=== PATIENT | male | born 1950 | race Caucasian/White ===

== ENCOUNTER 2023-02-21 05:30 | Observation (INO) ==
--- NOTE | 2023-02-02 14:01 | PAT Medication Instructions ---
Medication Instructions Date of Service February 02, 2023 Home Medications albuterol sulfate 90 mcg/actuation aerosol inhaler 1 inh inhalation QID PRN sob atorvastatin 80 mg tablet 40 mg PO HS mometasone 220 mcg/actuation(120 doses)breath activated powder inhaler (Asmanex Twisthaler) 2 inh inhalation QAM Multivitamin 50 Plus tablet 1 tab PO QAM omeprazole 20 mg capsule,delayed release 20 mg PO QAM DO NOT take the morning of surgery Multivitamin 50 Plus tablet 1 tab PO QAM Take morning of surgery With a small sip of water, OTHERWISE NOTHING TO EAT OR DRINK AFTER MIDNIGHT: albuterol sulfate 90 mcg/actuation aerosol inhaler 1 inh inhalation QID PRN sob (use if needed; please bring rescue inhaler with you to hospital day of surgery if possible) mometasone 220 mcg/actuation(120 doses)breath activated powder inhaler (Asmanex Twisthaler) 2 inh inhalation QAM omeprazole 20 mg capsule,delayed release 20 mg PO QAM Take evening before surgery albuterol sulfate 90 mcg/actuation aerosol inhaler 1 inh inhalation QID PRN sob (if needed) atorvastatin 80 mg tablet 40 mg PO HS Other Notes If you have any questions please call us at [phone] or [phone] or [phone] or [phone]
--- NOTE | 2023-02-09 10:08 | Anesthesiology Consultation ---
Date of Service February 09, 2023 Assessment & Plan (1) Encounter for pre-operative examination: - COVID screening: Per assessment on 02/09: No known COVID-19 positive contacts or current COVID-19 related symptoms. Travel screen negative. Patient vaccinated. At surgeon discretion if preop Covid testing being done. - Outpatient joint assessment: Pt currently scheduled for inpatient pathway. If surgeon requests review for outpatient joint pathway, patient is not recommended candidate for outpatient joint program from anesthesia standpoint. - Abnormal preop CXR: CXR performed 02/09/23 noted "Foci of parenchymal scarring are seen throughout both lungs with interstitial opacities. This may represent changes of chronic lung disease. Correlate clinically for evidence of a mild pneumonitis. Correlate with any prior outside imaging studies to assess for chronicity. This can be further assessed with a chest CT if clinically warranted." Note written to PCP regarding preop CXR- Awaiting response (Dr. Meraz/[facility] [place]). Chart Review Chart Review: Patient seen in Pre Admission Testing Teaching & Discussion Pre-Anesthesia Teaching/Discussion Notes: Instructed NPO after midnight before surgery,except medications with 15 cc of water. Medication instructions provided according to the PAT guidelines. History Surgery Operation Date: 02/21/23 11:15 Proposed Procedures p Left Total Knee Arthroplasty - Bharat Llamas DO Height/Weight Height: 6 ft Weight: 105.6 kg Allergies Allergy/AdvReac Type Severity Reaction Status Date / Time No Known Allergies Allergy Verified 02/01/23 10:48 Medications Home Medications Medication Instructions Recorded Confirmed Last Taken albuterol sulfate 90 mcg/actuation 1 inh inhalation QID PRN sob 02/01/2301/04 Unknown aerosol inhaler atorvastatin 80 mg tablet 40 mg PO HS 02/01/23 02/01/23 Unknown mometasone 220 mcg/actuation(120 2 inh inhalation QAM 02/01/23 02/01/23 Unknown doses)breath activated powder inhaler (Asmanex Twisthaler) [id number] 1 tab PO QAM 02/01/23 02/01/23 Unknown tablet (Multivitamin 50 Plus tablet) omeprazole 20 mg capsule,delayed 20 mg PO QAM 02/01/23 02/01/23 Unknown release Past Medical History Medical History Asthma Well controlled, "mild" BPH (benign prostatic hyperplasia) GERD (gastroesophageal reflux disease) Hx of colonic polyp Hyperlipidemia Osteoarthritis Post traumatic stress disorder [place] Sleep apnea CPAP (occasional use, non-compliant), "mild" Exercise / Class Metabolic Activity II 4-5 Yardwork/Stairs/Walk up hill (one FS (no CP, no SOB)) Past Family History Family History Other No family history of adverse response to anesthesia Past Surgical History Surgical History History of colonoscopy History of esophagogastroduodenoscopy (EGD) History of tonsillectomy S/P left knee arthroscopy S/P lumbar fusion L4/L5 Past Anesthesia History No Hx of Anesthesia Complications and No Family Hx of Anesthesia Complications History of PONV No Hx of PONV and Hx of Motion Sickness (Occasional/car) Social History Smoking Status: Never smoker Do You Dip or Chew Tobacco: No Hx Alcohol Use: Yes (Hx heavy, remote ETOH after tour, now only occasional use) Alcohol type: beer and hard liquor alcohol intake frequency: holidays/special occasions only Hx Substance Use: No substance use type: does not use Review of Systems Patient denies chest pain, shortness of breath, dyspnea on exertion, fever, chills, cough, wheezing, palpitations. Physical Exam Vital Signs VITALS BP 128/77 P 67 TEMP 98.0 SP02 96%RA RESP 16 PHYSICAL Full cervical extension range of motion. Full TMJ range of motion. TMD 3 finger breaths Mallampati Score 2 Dentition: missing right lower side Lungs: clear throughout to auscultation Cardiac: regular rate and rhythm, no murmurs noted Spine: normal Carotid arteries: negative bruit Extremities: LLE swelling (no pitting edema)- chronic issue r/t knee issues per patient Lab Results Anesthesia Preop Results Results Anesthesia Widget: WBC 7.08 K/ul (4.8-10.8) 02/09/23 Hgb 13.5 g/dl (14.0-18.0) L 02/09/23 Hct 41.0 % (42.0-52.0) L 02/09/23 Plt 181 K/uL (130-400) 02/09/23 Na 140 mmol/L (136-145) 02/09/23 K 4.9 mmol/L (3.5-5.1) 02/09/23 Cl 106 mmol/L (98-107) 02/09/23 CO2 28 mmol/L (21-32) 02/09/23 BUN 20 mg/dl (6-23) 02/09/23 Creat 1.16 mg/dl (0.6-1.4) 02/09/23 Glucose Level 88 mg/dl (70-99(Fasting)) 02/09/23 PT 10.6 Seconds (9.0-12.0) 02/09/23 PTT 28.4 Seconds (21.0-31.0) 02/09/23 INR 1.0 (0.9-1.1) 02/09/23 HA1c 5.9 % (4.5-5.6) H 02/09/23 Urine Color Yellow 02/09/23 Urine Appearance Clear (Clear) 02/09/23 Urine pH 6.5 (4.5-7.5) 02/09/23 Urine Specific Hecker 1.008 (1.000-1.030) 02/09/23 Urine Protein Negative (Negative) 02/09/23 Urine Glucose (UA) Negative (Negative) 02/09/23 Urine Ketones Negative (Negative) 02/09/23 Urine Blood Negative (Negative) 02/09/23 Urine Nitrite Negative (Negative) 02/09/23 Urine Bilirubin Negative (Negative) 02/09/23 Urine Urobilinogen Negative (Negative) 02/09/23 Urine Leukocyte Esterase Trace (Negative) H 02/09/23 Urine WBC (Auto) 1-5 /hpf (0-5) 02/09/23 Urine RBC (Auto) 0-4 /hpf (0-4) 02/09/23 Urine Hyaline Casts (Auto) 0 /lpf (0-5) 02/09/23 Urine Epithelial Cells (Auto) 0-5 /lpf (0-5) 02/09/23 Urine Bacteria (Auto) Negative (Negative) 02/09/23 Blood Type A Positive 02/09/23 Antibody Screen NEGATIVE 02/09/23 Testing Electrocardiogram Date: 02/09/23 NSR at 60bpm. Chest X-Ray Date: 02/09/23 Cardiomegaly without radiographic evidence of congestive failure. Foci of parenchymal scarring are seen throughout both lungs with interstitial opacities. This may represent changes of chronic lung disease. Correlate clinically for evidence of a mild pneumonitis. Correlate with any prior outside imaging studies to assess for chronicity. This can be further assessed with a chest CT if clinically warranted. COVID-19 Risk Screen Screening Information COVID-19 Screen Date: 02/09/23 Exposure 21 Days Family/Household +COVID Last 21 Days: No Exposure 10 Days Any COVID Exposure Last 10 Days: No Symptoms Last 10 Days Experienced COVID Sx Last 10 Days: No + COVID 0-90 Days COVID + in Last 0-90 Days: No
--- NOTE | 2023-02-09 12:52 | History & Physical Report ---
Date of Service February 09, 2023 date of surgery: 02/21/23 Procedure: Left Total Knee Arthroplasty Surgeon: Bharat Llamas Assessment & Plan (1) Arthritis of knee, left: Plan: Risk and benefits of procedure were discussed in detail, he would like to proceed with surgical invention. Plan to be left total knee arthroplasty at [facility], plan for overnight stay with discharge home the following day with home health physical therapy. Will place on aspirin 81 mg twice a day for 1 month postop. We will follow-up in the office 2 weeks after surgery sooner if he is having any issues. He otherwise has no other questions or concerns The risks and benefits have been discussed including, but not limited to, risk of infection, nerve injury, stiffness, loss of motion, failure to improve, etc. Reasonable outcomes and options of treatment were discussed. An explanation of appropriate alternatives to the procedure that may be advantageous were discussed and their risks and benefits, as well as the risks and benefits of not proceeding with treatment. I offered to answer any additional inquiries concerning the treatment involved. All the patient's questions were answered. The patient is agreeable, understanding of the treatment plan and alternatives, and wishes to proceed with the treatment plan. History of Present Illness Chief Complaint: left knee pain Primary Care Provider: GALI Francisco is a pleasant 73-year-old male who presents for preop evaluation prior to his left total knee replacement scheduled for February 21. He has a longstanding history of left knee pain, he underwent left knee arthroscopy with partial meniscectomy, since that time he is undergoing cortisone injections as well as viscosupplementation without relief. He rates his current pain as a 7 out of 10, has tried oral anti-inflammatories and Tylenol as well. This point time is failed conservative measures like that she had left total knee replacement Allergies Allergy/AdvReac Type Severity Reaction Status Date / Time No Known Allergies Allergy Verified 02/01/23 10:48 Home Medications Medication Instructions Recorded Confirmed Type albuterol sulfate 90 mcg/actuation 1 inh inhalation QID PRN sob 02/01/23 02/01/23 History aerosol inhaler atorvastatin 80 mg tablet 40 mg PO HS 02/01/23 02/01/23 History mometasone 220 mcg/actuation(120 2 inh inhalation QAM 02/01/23 02/01/23 History doses)breath activated powder inhaler (Asmanex Twisthaler) [id number] 1 tab PO QAM 02/01/23 02/01/23 History tablet (Multivitamin 50 Plus tablet) omeprazole 20 mg capsule,delayed 20 mg PO QAM 02/01/23 02/01/23 History release Past Med/Surg History Medical History Asthma Well controlled, "mild" BPH (benign prostatic hyperplasia) GERD (gastroesophageal reflux disease) Hx of colonic polyp Hyperlipidemia Osteoarthritis Post traumatic stress disorder [place] Sleep apnea CPAP (occasional use, non-compliant), "mild" Surgical History History of colonoscopy History of esophagogastroduodenoscopy (EGD) History of tonsillectomy S/P left knee arthroscopy S/P lumbar fusion L4/L5 Family History Other No family history of adverse response to anesthesia Social History Smoking Status: Never smoker Second Hand Exposure: No; Do You Dip or Chew Tobacco: No; Hx Alcohol Use: Yes (Hx heavy, remote ETOH after tour, now only occasional use) Alcohol type: beer and hard liquor Hx Substance Use: No Preferred Language: Chilean Communication Ability: Effective Gis Database Administrator Required: No Beliefs That Will Affect Care: None Current Living Situation: Spouse and Family Current Living Situation Comment: lives with and handicap daughter Feels Safe at Home: Yes Assistive Devices: CPAP and Glasses Review of Systems Review of Systems: All systems reviewed & are unremarkable except as noted in HPI & below Constitutional: no fever, no chills and no sweats Respiratory: no cough and no dyspnea Cardiovascular: no chest pain, no dyspnea and no orthopnea Gastrointestinal: no abdominal pain, no nausea and no vomiting Musculoskeletal: as per Subjective / HPI Physical Exam Physical Exam: HT: 6ft WT: 105.6kg Constitutional: WD/WN, vitals as above no acute distress Respiratory: normal respiratory effort, lungs clear to auscultation no respiratory distress, no labored breathing and does not use accessory muscles Cardiovascular: RRR, no murmur, no edema Gastrointestinal (Abdomen): normal bowel sounds, soft, nontender, no hepatosplenomegaly Musculoskeletal: Knee: + knee abnormal to inspection (LEFT KNEE: ), + effusion (+1 effusion), + surgical incision (well healed portals), + limited ROM of knee (ROM 0/3/110), + knee ROM with crepitation, + joint line tenderness (medial joint line) and + Sofia's sign positive; no deformity, no skin erythema, no ecchymosis, no valgus laxity, no varus laxity, anterior drawer test negative, Nilsa's sign negative and pivot shift test negative Results & Data Results & Data Diagnostic Findings Left Knee X-ray: left knee series confirm advanced degenerative changes to the left knee, greatest medial compartments and patellofemoral joint, showing joint space narrowing, osteophyte formation and subchondral sclerosis. no acute bony pathology noted.
[2023-02-21] MEDS ORDERED: GABAPENTIN 300 MG CAP PO SCH (06:00)
[2023-02-21] MEDS ORDERED: ceFAZolin 2000MG 2,000 MG/15 ML SYR IV SCH (06:00)
[2023-02-21] MEDS ORDERED: CeleBREX 200 MG CAP PO SCH (06:00)
[2023-02-21] MEDS ORDERED: TRANEXAMIC ACID 1,000 MG **IV Intra-op IV SCH (06:00)
[2023-02-21] MEDS ORDERED: dexAMETHasone 4 MG TAB PO SCH (06:00)
[2023-02-21] MEDS ORDERED: ROPIVACAINE 0.5% HCL/PF 150 MG, BUPIVACAINE 0.75% MPF 20 ML, EPINEPHrine 30MG/30ML (OR ... INSTIL SCH (06:00)
[2023-02-21] MEDS ORDERED: FAMOTIDINE 20 MG TAB PO SCH (06:00)
[2023-02-21] MEDS ORDERED: TRANEXAMIC ACID 1,000 MG **IV Pre-op IV SCH (06:00)
[2023-02-21] MEDS ORDERED: METOCLOPRAMIDE HCL 10 MG TABLET PO SCH (06:00)
[2023-02-21] MEDS ORDERED: LR 500ML BOLUS, THEN 15ML/HR IV SCH (06:00)
[2023-02-21] MEDS ORDERED: ACETAMINOPHEN 500 MG TAB PO SCH (06:00)
[2023-02-21] MEDS ORDERED: BUPIVACAINE 0.5 % 5 MG/1 ML PF 10ML VIAL ONE (06:03)
[2023-02-21] MEDS ORDERED: ROPIVACAINE 0.5% 5 MG/ML 30 ML VIAL ONE (06:04)
[2023-02-21] MEDS ORDERED: fentaNYL citrate PF 100 MCG/2 ML VIAL ONE (07:02)
[2023-02-21] MEDS ORDERED: LIDOCAINE 2% 2 ML VIAL/AMP(20MG/ML) INFIL ONE (07:02)
[2023-02-21] MEDS ORDERED: PROPOFOL IV EMULSION 10 MG/ML 20 ML VIAL IV ONE (07:02)
[2023-02-21] MEDS ORDERED: MIDAZOLAM HCL 1 MG/ML 2ML VIAL ONE (07:02)
[2023-02-21] MEDS ORDERED: ORTHO JOINT ANESTHETIC ONE (07:06)
--- NOTE | 2023-02-21 07:08 | History & Physical Bridge Note ---
Date of Service February 21, 2023 History & Physical Bridge Note I have examined the patient, reviewed the History & Physical and in the interval since the performance of the History & Physical I have noted the following changes of clinical significance: no changes noted
[2023-02-21] MEDS ORDERED: ONDANSETRON INJ 2 MG/ML 2 ML VIAL IV PRN ×2 (08:09→10:39)
[2023-02-21] MEDS ORDERED: ePHEDrine sulfate 50 MG/ML AMP IV PRN (08:09)
[2023-02-21] MEDS ORDERED: fentaNYL citrate PF 100 MCG/2 ML VIAL IV PRN (08:09)
[2023-02-21] MEDS ORDERED: ATROPINE SULFATE 0.1 MG/ML 10ML SYR IV PRN (08:09)
--- NOTE | 2023-02-21 09:05 | Operative Report ---
Post Operative Report Pre & Post Diagnosis Operation Date: 02/21/23 07:35 Pre-Op Diagnosis: Left Knee Osteoarthritis Post-Op Diagnosis: Left Knee Osteoarthritis I identified the patient and participated in the time-out.: Yes Procedure Operation Date: 02/21/23 07:35 Actual Procedures p Left Total Knee Arthroplasty(Left)Utilizing [employer] persona with block total knee arthroplasty size femur 10 standard tibia G poly 11 medial constrained patella 34 oval - Bharat Llamas DO Surgeon Bharat Llamas DO Case Briefer Shalom BIANCHI Estimated Blood Loss 5 Findings Consistent with Post-Op Diagnosis Patient presents with severe end-stage tricompartmental degenerative joint disease subchondral sclerosis marginal osteophytes subchondral cystic changes moderate to large effusion with eburnated [id number]-vq-wawv varus alignment Specimens Bone and cartilage Drains Medium bore Hemovac Anesthesia Type MAC Spinal Regional Complications none Disposition Accompanied Patient To Recovery: No Disposition: Recovery Room Indications Patient presents with severe end-stage DJD nonresponsive to conservative management left knee patient's failed attempted corticosteroid injection viscosupplementation relative rest activity modification patient presents the above intraoperative findings Description of Procedure After proper prepping and draping of the left lower extremity anterior midline incision was made over the region of the extensor extensor mechanism after meticulous hemostasis was obtained and maintained in subcutaneous tissues a medial parapatellar incision was made The patella was subluxed lateralward the medial lateral gutter were cleaned from any hypertrophic synovitis and scar tissue of the distal femoral block was placed and the distal femoral osteotomy cut was made subsequently the chamfers anterior and posterior osteotomy cuts were made utilizing the 4-in-1 block the tibia was subsequently subluxed anteriorward medial and ateral meniscal remnants were excised in their entirety remnants of the anterior and posterior cruciate ligaments were excised in their entirety excellent exposure of the proximal tibia was obtained the tibial osteotomy guide was placed on the proximal tibial osteotomy cut was made once again the knee was irrigated with copious amounts of sterile saline solution the patella was subsequently everted lateralward thickened scar tissue around the patella was removed the patella was subsequently cut utilizing a freehand technique and was drilled prepared for final preparation and placement of patella socially flexion-extension gaps were checked and the equal and symmetric trials were placed to the appropriate femoral and tibial trials with poly-spacer being placed for equal flexion and extension gaps and full range of motion including extension to 0 and flexion to 140 the trial components after having been taken to recovery range of motion was subsequently removed meticulous hemostasis was obtained and maintained subsequently a knee block injection of joint cocktail including ropivacaine 0.5% 150 mg. Bupivacaine 0.5% epinephrine 1-200,030 mL's toradol 30 mg dexamethasone 4 mg ketamine 10 mg clonidine 100 micrograms normal saline solution 30 mg was infiltrated into the soft tissues of the posterior knee medial lateral gutters and periosteal synovium special attention was paid to protect neurovascular structures at all times subsequently trial components having been removed the knee was irrigated with sterile saline solution. debris was removed the proximal tibia was subsequently prepared and was made ready for the placement of the tibial component tibial component was also cemented and tamped into position the femoral component was subsequently placed and cemented in the position the patellar component was subsequently cemented in position because hemostasis once again obtained and maintained wound having been thoroughly irrigated with debridement and debridement lavage was performed as well as a medial parapatellar incision closed with #1 Vicryl in interrupted fashion subcutaneous was closed with #2 Vicryl skin was closed with skin clips. PA-C was necessary for prepping and drapping as well as wound closure of deep fascia Sub cutaneous tissue and skin and was necessary for the case. A sterile compressive dressing was placed patient was taken to recovery in stable condition of report dictated by Farhad I attest to the content of the Intraoperative Record and any orders documented therein. Any exceptions are noted below.Due to the complex nature of the procedure, the entire surgery was performed with the operational assistance of ARIAS Holland. The campaign assistant, under direct supervision, was involved in the actual performance of all aspects of the surgical procedure including hemostasis, tissue retraction and incision, instrument management, patient positioning, and wound closure. I attest to the content of the Intraoperative Record and any orders documented therein. Any exceptions are noted below.
--- NOTE | 2023-02-21 10:10 | XRay Report ---
XR knee LT 1 or 2V routine CLINICAL HISTORY: Postoperative evaluation. COMPARISON: None FINDINGS: Alignment of the total left knee arthroplasty is anatomic. There is no periprosthetic frac ture or unexpected radiopaque foreign body. Surgical drain is in place. IMPRESSION: Expected findings following total left knee arthroplasty. ACT 112: Negative or not required by law. Electronically signed by: Sean June M.D. 02/21/2023 10:09 AM
--- NOTE | 2023-02-21 10:33 | Operative Report ---
Post Operative Report Pre & Post Diagnosis Operation Date: 02/21/23 07:35 Pre-Op Diagnosis: Left Knee Osteoarthritis Post-Op Diagnosis: Left Knee Osteoarthritis I identified the patient and participated in the time-out.: Yes Procedure Operation Date: 02/21/23 07:35 Actual Procedures p Left Total Knee Arthroplasty(Left) - Bharat Llamas DO Surgeon Bharat Llamas DO Parachute Accessories Attacher Shalom BIANCHI Estimated Blood Loss 5 I attest to the content of the Intraoperative Record and any orders documented therein. Any exceptions are noted below.
[2023-02-21] MEDS ORDERED: bisacodyL 10 MG SUPP PR PRN (10:39)
[2023-02-21] MEDS ORDERED: MAGNESIUM HYDROXIDE SUSP 30 ML UDC PO PRN (10:39)
[2023-02-21] MEDS ORDERED: HYDROmorphone INJ 1 MG/ML SYRINGE IV PRN (10:39)
[2023-02-21] MEDS ORDERED: METOCLOPRAMIDE HCL INJ 5 MG/ML 2 ML VIAL IV PRN (10:39)
[2023-02-21] MEDS ORDERED: diphenhydrAMINE Capsule 25 MG CAP PO PRN (10:39)
[2023-02-21] MEDS ORDERED: NALOXONE HCL 0.4 MG/1 ML VIAL/CARP IV PRN (10:39)
[2023-02-21] MEDS ORDERED: ALBUTEROL HFA 8 GM INHALER INH PRN (10:39)
[2023-02-21] MEDS ORDERED: oxyCODONE HCL IR 5 MG TAB (IMMEDIATE RELEASE) PO PRN (10:39)
[2023-02-21] MEDS: SODIUM CHLORIDE 0.9% 1000ML 1,000 ML IV SCH ×2 (10:55→20:45)
[2023-02-21] MEDS: KETOROLAC TROMETHAMINE 15 MG/ML VIAL IV SCH ×4 (10:57→23:00)
--- NOTE | 2023-02-21 11:01 | Anesthesiology Progress Note ---
Date of Service February 21, 2023 Anesthesia Post Procedure Vital Signs Vital Signs: Temp Pulse Pulse Pulse Resp BP Pulse Ox 02/21/23 10:39 97.7 F 76 18 124/76 98 02/21/23 10:20 97.5 F L 62 20 114/90 100 02/21/23 10:10 62 18 124/75 97 02/21/23 10:00 62 17 127/69 95 02/21/23 09:50 62 15 136/77 98 02/21/23 09:43 97.0 F L 72 12 129/76 98 02/21/23 05:52 02/21/23 05:52 97.7 F 64 20 138/82 97 O2 Del Method O2 Flow Rate 02/21/23 10:39 Room Air 02/21/23 10:20 Nasal Cannula 2 02/21/23 10:10 Nasal Cannula 2 02/21/23 10:00 Nasal Cannula 2 02/21/23 09:50 Nasal Cannula 2 02/21/23 09:43 Nasal Cannula 4 02/21/23 05:52 Room Air 02/21/23 05:52 Room Air Pain Intensity Left Knee: Pain Intensity: 0 Transfer of Care Handoff Completed per policy Notes Mental Status: alert / awake / arousable and participated in evaluation Patient Amnestic to Procedure: Yes Nausea / Vomiting: adequately controlled Pain: adequately controlled Airway Patency, RR, SpO2: stable & adequate BP & HR: stable & adequate Hydration State: stable & adequate Neuraxial Anesthesia: was administered and sensory block is resolving Anesthetic Complications: no major complications apparent and Pt Satisfied with anesthetic care
[2023-02-21] MEDS: ACETAMINOPHEN 500 MG TAB PO SCH ×2 (15:09→22:58)
[2023-02-21] MEDS: ceFAZolin 2000MG 2,000 MG/15 ML SYR IV SCH ×2 (16:28→23:01)
[2023-02-21] MEDS: DOCUSATE SODIUM 100 MG CAP PO SCH (20:46)
[2023-02-21] MEDS: ASPIRIN 81 MG ECTAB PO SCH (20:46)
[2023-02-21] MEDS ORDERED: SENNA 8.6 MG TAB PO SCH (21:00)
[2023-02-21] MEDS ORDERED: ATORVASTATIN 40 MG TAB PO SCH (21:00)
[2023-02-22] MEDS: ACETAMINOPHEN 500 MG TAB PO SCH (05:45)
--- NOTE | 2023-02-22 07:11 | Orthopedic Progress Note ---
Date of Service February 22, 2023 Assessment & Plan (1) History of total left knee replacement: Plan: POD #1 s/p Left TKA pt/ot dvt proph with [facility]/SCD/ASA plan for d/c home with HHPT after PT today Admission and Anticipated Discharge Date Admission Date: February 21, 2023 Subjective POD #1 s/p Left TKA Review of Systems Constitutional: no fever, no chills and no sweats Respiratory: no cough and no dyspnea Cardiovascular: no chest pain and no dyspnea Gastrointestinal: no abdominal pain, no nausea and no vomiting Physical Exam Musculoskeletal: Left Leg: NVDI, calf SNT, negative kavya sign. DP palpable, able to wiggle toes/ankle movement without difficulty. dressing clean dry and intact. Results & Data Vital Signs (Past 12 Hours) Vital Signs Temp Pulse Resp BP Pulse Ox O2 Del Method 02/22/23 06:28 36.4 C L 53 L 16 98/60 L 96 Room Air 02/22/23 03:00 36.6 C 54 L 18 99/60 L 97 Room Air 02/21/23 23:00 36.5 C 63 18 105/63 96 Room Air
[2023-02-22 07:58] LABS: Hematocrit (blood only) 34.9 % (42.0-52.0); Hemoglobin 11.8 g/dl (14.0-18.0); Mean Corpuscular Hemoglobin 28.9 pg (25.0-34.0); Mean Corpuscular Hgb Conc 33.8 g/dL (32.0-36.0); Mean Corpuscular Volume 85.3 fL (80.0-100.0); Mean Platelet Volume 10.3 fL (9.4-12.4); Platelet Count 169 K/uL (130-400); RDW Standard Deviation 43.9 fL (36.4-46.3); Red Blood Count 4.09 M/uL (4.70-6.10); White Blood Count 14.38 K/ul (4.8-10.8)
[2023-02-22] MEDS: ASPIRIN 81 MG ECTAB PO SCH (08:03)
[2023-02-22] MEDS: DOCUSATE SODIUM 100 MG CAP PO SCH (08:03)
[2023-02-22 08:14] LABS: BUN Creatinine Ratio 18.3 (10-20); Calcium 8.7 mg/dl (8.6-10.3); Creatinine Clr Calc Pharmacy 64.3 ml/min; Est GFR (African American) 64.7 ml/min; Est GFR (Non-African American) 55.8 ml/min; Potassium 4.4 mmol/L (3.5-5.1)
[2023-02-22] MEDS ORDERED: MULTIVITAMIN TAB PO SCH (09:00)
[2023-02-22] MEDS ORDERED: FLUTICASONE FUROATE 200MCG 14 PUFFS/INHALER INH SCH (09:00)
--- NOTE | 2023-02-22 10:33 | Discharge Summary ---
Date of Service date of discharge: February 22, 2023 date of admission: 02/21/23 Admission HPI Per Admitting Provider Nolan is a pleasant 73-year-old male who presents for preop evaluation prior to his left total knee replacement scheduled for February 21. He has a longstanding history of left knee pain, he underwent left knee arthroscopy with partial meniscectomy, since that time he is undergoing cortisone injections as well as viscosupplementation without relief. He rates his current pain as a 7 out of 10, has tried oral anti-inflammatories and Tylenol as well. This point time is failed conservative measures like that she had left total knee replacement Principal Diagnosis left knee osteoarthritis Discharge Exam HT: 6ft WT: 105.6kg Constitutional WD/WN, vitals as above Musculoskeletal left knee: NVDI, calf SNT, negative kavya sign. DP palpable, able to wiggle toes/ankle movement without difficulty. dressing clean and dry Discharge Data Allergies Allergy/AdvReac Type Severity Reaction Status Date / Time No Known Allergies Allergy Verified 02/21/23 05:49 Procedures Performed Operation Date: 02/21/23 07:35 Actual Procedures p Left Total Knee Arthroplasty(Left) - Bharat Herrera DO Ordered Studies 02/21/23 05:00 US - OR guided needle placemen Routine Hospital Course (1) History of total left knee replacement: POD #1 s/p Left TKA pt/ot dvt proph with ZAINA/SCD/ASA plan for d/c home with HHPT after PT today Total Time Total Time Spent Total Time Spent (In Minutes): 20 Discharge Plan Discharge Items Patient Disposition: Home - Home Health Services Reason For Visit: Left Knee Osteoarthritis Discharge Diagnosis: LEFT TOTAL KNEE ARTHROPLASTY Activity: Per Instructions section Non-emergency contact: Surgeon Call non-emergency contact if: you have any medication questions, your temperature is above 101, your wound has increased redness, your wound has increased drainage and your wound pain has increased Follow-up/Referrals: Naren Meraz MD [Primary Care Provider] - Diet: Regular Addtl Attending Provider Instructions: ACTIVITY RECOMMENDATIONS: SELF CARE INSTRUCTIONS AFTER TOTAL KNEE REPLACEMENT A. You may need to continue a physical therapy program after discharge from the hospital. There are several options available to you. Your doctor will assist you in selecting the best one for you. 1. An out-patient facility 2 to 3 times a week for therapy or home therapy. 2. Continue working on all exercises taught to you in the hospital. Your goals should be to increase bending of your knee to 90 degrees and beyond and to fully straighten your knee. B. You may progress at your own pace from walking with a walker or crutches to a cane; then to no assistive devices. C. Make walking a part of your daily routine. Be up as much as comfortable with rest periods throughout the day. Rest with leg elevation is very important. Use the ice wrap frequently for the first 3-4 weeks. D. There are no restrictions on activities. You may ride in a car, shop, participate in cyber incident analyst and all social activities. E. Wear the long elastic stockings (ZAINA hose) 20 hours a day for 2 weeks after surgery. They can be removed several times a day for laundering and for a bath. F. You may shower, no tub baths until cleared by your doctor. SPECIAL CARE INSTRUCTIONS: VERY IMPORTANT TO READ AND REVIEW A. There are a few signs you need to watch for after you are home. Call [facility] if you notice any of the followin. Increased severe knee pain. Some pain is expected especially when you exercise. 2. Increased swelling in your leg or knee; pain or swelling of the calf muscle in either lower leg. 3. Any fluid drainage from the incision. 4. Shortness of breath or chest pain. B. Please call [facility] at if you have any concerns or questions about your operation or recovery. The doctor or his nurse will return your call promptly. C. You must take antibiotics before dental work, bladder, bowel or other surgery. Your doctor will provide you with a permanent care to carry describing this precaution. IMPORTANT: * REMEMBER TO TAKE ASPIRIN, 81 MG, TWICE DAILY FOR 4 WEEKS UNLESS OTHERWISE DIRECTED. THIS IS YOUR BLOOD THINNER. * HIGH RISK PATIENTS MAY BE PRESCRIBED A STRONGER BLOOD THINNER. THIS WILL BE PROVIDED AT DISCHARGE. * CALL IF INCREASED PAIN, REDNESS, DRAINAGE OR FEVER GREATER THAT 101. * WEAR ZAINA HOSE 20 HOURS PER DAY FOR 2 WEEKS. DRESSING INSTRUCTIONS * KOLBY Dressing- This is a large suction dressing covering your incision. This will help pull any excess drainage from the wound and allow your incision to heal properly. You may shower with this if you can keep the unit outside of the shower. If any bleeding or leakage is noted please call your doctor's office. This will remain on your incision for 7 days and then should be removed. This can be done yourself or by the home nursing staff if applicable. The entire unit is disposable once removed. Once removed, keep incision clean and dry. If redness or drainage is noted, please call your surgeon. ONCE KOLBY IS REMOVED, FOLLOW THESE INSTRUCTIONS: DERMABOND Prineo- This is a mesh tape dressing that is covered with glue. It should remain in place until the incision is properly healed, usually 10-14 days. This dressing is designed to naturally slough off. You may trim the excess mesh tape as it peels off. Incision may be briefly wet in a shower. Dry immediately by blotting with a clean, dry towel. Do not bath or swim until instructed by your doctor. Do not scratch, rub, or pick at the dressing. Do not apply any topical ointments or lotions until dressing is completely removed and/or instructed by your doctor. There may be a small piece of suture material at one end of your incision. Do not pull or trim this. If it is bothersome or catching on clothing, you may cover it with a band-aid. IF INCISION IS LEAKING THROUGH DRESSING, CALL THE OFFICE . FOLLOW UP VISIT: If appointment is not already scheduled: Please call [facility] to make a follow-up appointment for 2 weeks after your surgery at . Pending Studies at Discharge: No Stand-Alone Forms: My [facility] Medications and DC Order Prescriptions: New acetaminophen 500 mg tablet 1,000 mg PO Q8 21 Days Qty: 126 0RF aspirin 81 mg tablet,delayed release (DR/EC) 81 mg PO BID 30 Days Qty: 60 0RF cefadroxil 500 mg capsule 500 mg PO BID 14 Days Qty: 28 0RF celecoxib [Celebrex] 200 mg capsule 200 mg PO BID 30 Days Qty: 60 0RF oxycodone 10 mg tablet 5 - 10 mg PO Q6H PRN (Reason: pain) Qty: 30 0RF Rx Instructions: ongoing therapy, supervising dr mikey herrera. max 4 tabs in 24 hours Continued atorvastatin 80 mg Tablet 40 mg PO HS omeprazole 20 mg Capsule,Delayed Release(Dr/Ec) 20 mg PO QAM albuterol sulfate 90 mcg/actuation Hfa Aerosol Inhaler 1 inh INHALATION QID PRN (Reason: sob) Asmanex Twisthaler 220 mcg/ actuation (120) Aerosol Powdr Breath Activated 2 inh INHALATION QAM Multivitamin 50 Plus Tablet 1 tab PO QAM Krames/Other Patient Handouts: Knee Replacement Post Op Admission Data Admit Date/Time: 02/21/23 09:49 Attending Provider: Bharat Herrera Admit Provider: Bharat Herrera Primary Care Provider: Naren Meraz Other Interventions: Discharge Summary Assessment (RN) Last Done: 02/22/23 09:59
[2023-02-22] MEDS ORDERED: CeleBREX 200 MG CAP PO SCH (12:00)
== END 2023-02-22 10:50 | disposition home health service (06) ==
LOC: ASU 05:30 → 3E 05:30